=== PATIENT | female | born 1985 | race Caucasian/White ===

== ENCOUNTER 2022-10-21 08:50 | Outpatient (CLI) | payer OTHER, SELFPAY | END 2022-10-21 08:51 | disposition home or self-care (01) | PROVIDERS: PCP Emergency Medicine; Visit Provider Emergency Medicine | DX: Z00.00 Encounter for general adult medical examination without abnormal findings (principal); R53.83 Other fatigue; Z13.1 Encounter for screening for diabetes mellitus | CPT/HCPCS: 80053; 80061; 84443 ==

== ENCOUNTER 2024-03-05 09:14 | Outpatient (CLI) | payer OTHER, SELFPAY | END 2024-03-05 09:15 | disposition home or self-care (01) | PROVIDERS: PCP Emergency Medicine; Referring Provider Emergency Medicine; Visit Provider Emergency Medicine | DX: Z00.00 Encounter for general adult medical examination without abnormal findings (principal); E78.1 Pure hyperglyceridemia; R53.83 Other fatigue | CPT/HCPCS: 80061; 82947 ==